=== PATIENT | male | born 1965 | race Two or more races ===

== ENCOUNTER 2025-11-05 21:08 | Emergency (ER) | payer MEDICAID, OTHER ==
[~2025-11-05] VITALS: Ht 188 cm; Wt 73.0 kg
--- NOTE | 2025-11-05 21:30 | ED.PDOC ---
History of Present Illness HPI Comments 60 y/o M is [id number] law enforcement for c/c of hypertension. Per law enforcement, patient was found hypertensive following felony warrant arrest, earlier, this evening. Right and left blood pressure cuff measurements of 202/108 and 211/116, respectively. Patient reports having headaches, dizzy spells, and intermittent, RUQ abdominal pain for the past 5x years. History of hypertension, borderline-DM, and noncompliance with medications. Patient does not recall the name of the blood pressure medication he takes aside from it being a pink, oval pill and not taking it for the past 3x years. Chief Complaint: Prison Check Time Seen by MD: 21:20 Reviewed Notes: Nurses Notes, Medications, Allergies Allergies: Coded Allergies: NO KNOWN ALLERGIES (Unverified , 11/05/25) Information Source: Patient, Law Enforcement Mode of Arrival: EMS Severity: Moderate Timing: Hours Duration: Since onset Prehospital treatment: None Past Medical History PAST MEDICAL HISTORY: DM, HTN Surgical History: Denies all surgeries Social History Smoker: Non-Smoker Alcohol: Denies ETOH Use Drugs: Denies Drug Use Lives In: Home All Other Systems: Reviewed and Negative (Comprehensive systems review obtained and negative except for what is stated in the HPI.) Physical Exam General Appearance: No Apparent Distress, Normal HEENT: Normal ENT Inspection, Pharynx Normal, TMs Normal Neck: Full Range of Motion, Non-Tender, Normal, Normal Inspection Respiratory: Chest Non-Tender, Lungs Clear, No Accessory Muscle Use, No Respiratory Distress, Normal Breath Sounds Cardiovascular: No Edema, No JVD, No Murmur, No Gallop, Normal Peripheral Pulses, Regular Rate/Rhythm Breast Exam: Deferred Gastrointestinal: No Organomegaly, No Pulsatile Mass, Normal Bowel Sounds, RUQ (tenderness ), Soft, Tenderness (RUQ) Genitalia: Deferred Pelvic: Deferred Rectal: Deferred Extremities: No calf tenderness, Normal capillary refill, Normal inspection, Normal range of motion, Non-tender, No pedal edema Musculoskeletal : Apperance: Normal Neurologic: Alert, marketing operations associate II-XII nml as Tested, No Motor Deficits, Normal Affect, Normal Mood, No Sensory Deficits Cerebellar Function: Normal Reflexes: Normal Skin: Dry, Normal Color, Warm Lymphatic: No Adenopathy Was a procedure done? Was a procedure done?: No Differential Dx Considerations may include: hypertensive emergency, hypertension - primary, medication noncompliance, tensi on headache, migraines, cholelithiasis, cholecystitis, gastritis, gastroenteritis, GERD, among others X-Ray, Labs, Meds, VS Vital Signs Date Time Temp Pulse Resp B/P (MAP) Pulse Ox O2 Delivery O2 Flow Rate FiO2 11/05/25 22:27 97.6 85 16 204/137 (159) 99 97.6 11/05/25 22:21 204/137 11/05/25 21:19 98.9 89 18 193/107 96 98.9 Lab Test 11/05/25 21:29 Range/Units White Blood Count 9.9 4.4-10.8 10^3/uL Red Blood Count 5.02 4.5-5.90 10^6/uL Hemoglobin 15.8 13.5-17.5 g/dL Hematocrit 46.1 41.0-53.0 % Mean Corpuscular Volume 91.9 80.0-100.0 fL Mean Corpuscular Hemoglobin 31.5 28.0-32.0 pg Mean Corpuscular Hemoglobin Concent 34.3 32.0-36.0 g/dL Red Cell Distribution Width 12.7 11.8-14.3 % Platelet Count 210 140-450 10^3/uL Mean Platelet Volume 8.2 6.9-10.8 fL Neutrophils (%) (Auto) 75.6 37.0-80.0 % Lymphocytes (%) (Auto) 13.4 10.0-50.0 % Monocytes (%) (Auto) 9.3 0.0-12.0 % Eosinophils (%) (Auto) 1.3 0.0-7.0 % Basophils (%) (Auto) 0.4 0.0-2.0 % Neutrophils # (Auto) 7.5 1.6-8.6 10 ^3/uL Lymphocytes # (Auto) 1.3 0.4-5.4 10 ^3/uL Monocytes # (Auto) 0.9 0-1.3 10 ^3/uL Eosinophils # (Auto) 0.1 0-0.8 10 ^3/uL Basophils # (Auto) 0 0-0.2 10 ^3/uL Nucleated Red Blood Cells 0.0 % Sodium Level 139 136-145 mmol/L Potassium Level 4.2 3.5-5.1 mmol/L Chloride Level 106 98-107 mmol/L Carbon Dioxide Level 25 20-31 mmol/L Anion Gap 8 5-15 Blood Urea Nitrogen 17 9-23 mg/dL Creatinine 1.11 0.700-1.30 mg/dL Glomerular Filtration Rate Calc 76 >90 mL/min BUN/Creatinine Ratio 15.3 10.0-20.0 Serum Glucose 101 74-106 mg/dL Calcium Level 9.5 8.7-10.4 mg/dL Current Medications Medications (Trade) Dose Ordered Sig/Berhane Route Start Time Stop Time Status Last Admin Hydralazine HCl (Apresoline Tablet) 25 mg ONCE ONCE PO 11/05/25 21:30 11/05/25 21:31 DC 11/05/25 22:21 X-Ray, Labs, Meds, VS Comment Significant drop in blood pressure after hydralazine 25 mg. Blood pressure continues to go up. Patient is still complaining of headache. Patient be given 10 mg labetalol IV, Patient will be admitted for hypertensive urgency Time of 1ST Reevaluation: 21:50 Reevaluation 1ST: Unchanged Patient Education/Counseling: Diagnosis, Treatment Family Education/Counseling: No Family Present SEPSIS Sepsis Screen Vital Signs Date Time Temp Pulse Resp B/P (MAP) Pulse Ox O2 Delivery O2 Flow Rate FiO2 11/05/25 22:27 97.6 85 16 204/137 (159) 99 97.6 11/05/25 22:21 204/137 11/05/25 21:19 98.9 89 18 193/107 96 98.9 Laboratory Tests Test 11/05/25 21:29 White Blood Count 9.9 10^3/uL (4.4-10.8) Medications Medications Dose Ordered Sig/Berhane Route Start Time Stop Time Status Last Admin Dose Admin Hydralazine HCl 25 mg ONCE ONCE PO 11/05/25 21:30 11/05/25 21:31 DC 11/05/25 22:21 Departure 1 Departure Time of Disposition: 00:16 Impression: Primary Impression: Hypertensive urgency Disposition: 09 ADMITTED INPATIENT Condition: Stable Critical Care Note Critical Care Time?: No Stability Stability form required: No Heart Score Heart Score: Heart Score Response (Comments) Value History N/A 0 EKG N/A 0 Age N/A 0 Risk Factors N/A 0 Troponin N/A 0 Total 0 I personally scribed for MABLE LOMAS ([email or web address]) on 11/05/25 at 21:30. Electronically submitted by Mariano Krishnamurthy ([email or web address]). MABLE LOMAS Nov 05, 2025 21:30
[2025-11-05 21:44] LABS: Hematocrit 46.1 % (41.0-53.0); Hemoglobin 15.8 g/dL (13.5-17.5); Mean Corpuscular Hemoglobin 31.5 pg (28.0-32.0); Mean Corpuscular Volume 91.9 fL (80.0-100.0); Nucleated Red Blood Cells % 0.0 %
[2025-11-05 22:04] LABS: Chloride 106 mmol/L (98-107); Potassium 4.2 mmol/L (3.5-5.1); Sodium 139 mmol/L (136-145)
[2025-11-05 22:05] LABS: Anion Gap 8 (5-15); Calcium 9.5 mg/dL (8.7-10.4); Carbon Dioxide 25 mmol/L (20-31)
[2025-11-05 22:10] LABS: Glucose 101 mg/dL (74-106)
[2025-11-05 22:27] VITALS: BP 204/137; PULSE 85; RESP 16; TEMP 97.6; O2SAT 99
[2025-11-05 22:29] LABS: BUN/Creatinine Ratio 15.3 (10.0-20.0); Blood Urea Nitrogen 17 mg/dL (9-23)
[2025-11-06] MEDS ORDERED: LABETALOL HCL 20 MG/4 ML VL IV ONE
== END 2025-11-06 01:12 | disposition left against medical advice (07) ==
LOC: ER 21:08
DX: I16.0 Hypertensive urgency (principal); I10 Essential (primary) hypertension; E11.9 Type 2 diabetes mellitus without complications
CPT/HCPCS: 36415; 80048; 85025